=== PATIENT | male | born 1945 | race Caucasian/White ===

== ENCOUNTER 2023-04-30 07:10 | Outpatient (CLI) | payer OTHER ==
[~2023-04-30 07:10] MED LIST: NIFE60TA3; PERCOCET 5/3251 TAB PO; SYNTHROID100 MCG
== END 2023-04-30 07:16 | disposition home or self-care (01) ==
LOC: SONOGRAMA 07:10
PROVIDERS: ATTEND Internal Medicine Gastroenterology
DX: R10.84 Generalized abdominal pain (principal)

== ENCOUNTER 2024-05-04 10:24 | Outpatient (CLI) | payer OTHER | END 2024-05-04 10:25 | disposition home or self-care (01) | LOC: EKG 10:24 | PROVIDERS: ATTEND Internal Medicine Cardiovascular Disease | DX: I10 Essential (primary) hypertension (principal) ==